=== PATIENT | female | born 1975 | race Caucasian/White ===

== ENCOUNTER 2017-07-07 23:30 | Emergency (ER) | payer MEDICAID ==
[~2017-07-07] VITALS: Ht 165.1 cm; Wt 80.6 kg
[~2017-07-07 23:30] MED LIST: ALBU8.5H3 INH; AMLO-26 PO; HYDR-906 PO; IBUP-1542 PO; LOPE2CAP PO; NAPR-688 PO; ONDA4TAB8 PO; RANI150T9 PO
[2017-07-07 23:32] VITALS: Ht 165.1 cm; Wt 80.6 kg
[2017-07-08] MEDS ORDERED: SOD CHLORIDE 0.9% 1,000 ML IV STA (01:00)
[2017-07-08] MEDS ORDERED: PANTOPRAZOLE 40 MG INJ IV ONE (01:00)
[2017-07-08] MEDS ORDERED: KETOROLAC 15 MG INJ IV STA (01:00)
[2017-07-08] MEDS ORDERED: ONDANSETRON INJ 8 MG in DEXTROSE 5% 50 ML IV STA (01:00)
--- NOTE | 2017-07-08 01:00 | ERD ---
ER Documentation Chief Complaint Chief Complaint right sided abd pain x1 day HPI 41-year-old female presents to emergency department with right upper ABD pain x 3 day hx of RUQ pain in the past, pt reports that the pain is radiating to back. n/v, headache, denies fever chills, same sx last year, possible cholecystis ROS All systems reviewed and are negative except as per history of present illness. Medications Home Meds Active Scripts Ibuprofen* (Motrin*) 400 Mg Tab, 400 MG PO Q6, #30 TAB Prov:VITA,DAVID 07/08/17 Omeprazole* (Omeprazole*) 40 Mg Capsule.dr, 40 MG PO DAILY, #10 CAP Prov:VITA,DAVID 07/08/17 Ranitidine Hcl* (Zantac*) 150 Mg Tablet, 150 MG PO BID Y for EPIGASTRIC PAIN, # 30 TAB Prov:VITA,DAVID 07/08/17 Hydrocodone/Acetaminophen ([place] 5-325 Tablet) 1 Each Tablet, 1 TAB PO Q6H Y for PAIN, #7 TAB Prov:VITA,DAVID 07/08/17 Ibuprofen* (Motrin*) 600 Mg Tab, 600 MG PO Q6, #30 TAB Prov:PROFLORENCIO ROJAS PA-C 08/29/16 Hydrocodone/Acetaminophen ([place] 5-325 Tablet) 1 Each Tablet, 1 TAB PO Q6H Y for PAIN, #20 TAB Prov:PROFLORENCIO ROJAS PA-C 08/29/16 Loperamide Hcl* (Imodium*) 2 Mg Capsule, 2 MG PO .AFTER EA LOOSE BM Y for DIARRHEA, #10 TAB Prov:FLORENCIO GOFF PA-C 08/29/16 Ondansetron Hcl* (Zofran*) 4 Mg Tablet, 4 MG PO Q6H for NAUSEA AND/OR VOMITING, #30 TAB Prov:FLORENCIO GOFF PA-C 08/29/16 Ranitidine Hcl* (Zantac*) 150 Mg Tablet, 150 MG PO BID Y for EPIGASTRIC PAIN, # 30 TAB Prov:NISREEN JACKSON DO 07/09/16 Naproxen* (Naproxen*) 500 Mg Tablet, 500 MG PO BID Y for PAIN, #20 TAB Prov:NISREEN JACKSON DO 07/09/16 Reported Medications Albuterol Sulfate* (Proair HFA*) 8.5 Gm Hfa.aer.ad, 2 PUFF INH Q4H Y for WHEEZING AND SOB, INHALER 11/21/15 Amlodipine-Benazepril (Amlodipine-Benazepril) 5-10 Mg Tablet, 1 CAP PO DAILY 11/21/15 Allergies Allergies: Coded Allergies: No Known Allergy (Unverified , 08/28/16) PMhx/Soc History of Surgery: Yes (BTL) Anesthesia Reaction: No Hx Neurological Disorder: No Hx Respiratory Disorders: Yes (Asthma) Hx Cardiac Disorders: Yes (HTN) Hx Psychiatric Problems: No Hx Miscellaneous Medical Probl: No Hx Alcohol Use: No Hx Substance Use: No Hx Tobacco Use: No Smoking Status: Never smoker Physical Exam Vitals Vital Signs Date Time Temp Pulse Resp B/P Pulse Ox O2 Delivery O2 Flow Rate FiO2 07/07/17 23:32 97.8 64 20 155/72 100 Vitals stable, triage notes reviewed Physical Exam Const: Obese, 41-year-old male patient, well-hydrated in no acute distress, obvious discomfort Head: Eyes: ENT: Normal External Ears, Nose and Mouth. Membranes moist Neck: Resp: Clear to auscultation bilaterally as wheezes or rhonchi Cardio: Regular rate and rhythm, no murmurs Abd: Obese, right upper quadrant tenderness, positive Troy sign my no CVA tenderness Skin: Back: No midline or flank tenderness Ext: Neur: Awake and alert Psych: Normal Mood and Affect Result Diagram: 07/08/175 07/08/17 0125 Results 24 hrs Laboratory Tests Test 07/08/17 01:25 White Blood Count 9.710^3/ul Red Blood Count 4.5410^6/ul Hemoglobin 13.2g/dl Hematocrit 39.9% Mean Corpuscular Volume 87.9fl Mean Corpuscular Hemoglobin 29.1pg Mean Corpuscular Hemoglobin Concent 33.1g/dl Red Cell Distribution Width 12.7% Platelet Count 12435^3/UL Mean Platelet Volume 9.9fl Neutrophils % 61.7% Lymphocytes % 22.8% Monocytes % 6.0% Eosinophils % 8.8% Basophils % 0.5% Nucleated Red Blood Cells % 0.0/100WBC Neutrophils # 6.010^3/ul Lymphocytes # 2.210^3/ul Monocytes # 0.610^3/ul Eosinophils # 0.910^3/ul Basophils # 0.110^3/ul Nucleated Red Blood Cells # 0.010^3/ul Urine Color ROXIE Urine Clarity CLEAR Urine pH 5.0 Urine Specific [place] 1.024 Urine Ketones NEGATIVEmg/dL Urine Nitrite NEGATIVEmg/dL Urine Bilirubin NEGATIVEmg/dL Urine Urobilinogen 1+mg/dL Urine Leukocyte Esterase NEGATIVELeu/ul Urine Microscopic RBC 7/HPF Urine Microscopic WBC 3/HPF Urine Squamous Epithelial Cells FEW/HPF Urine Mucus FEW/HPF Urine Hemoglobin 1+mg/dL Urine Glucose NEGATIVEmg/dL Urine Total Protein NEGATIVEmg/dl Sodium Level 145mmol/L Potassium Level 3.6mmol/L Chloride Level 105mmol/L Carbon Dioxide Level 30mmol/L Anion Gap 14 Blood Urea Nitrogen 15mg/dl Creatinine 0.73mg/dl Glucose Level 96mg/dl Calcium Level 9.8mg/dl Total Bilirubin 0.7mg/dl Direct Bilirubin 0.00mg/dl Indirect Bilirubin 0.7mg/dl Aspartate Amino Transf (AST/SGOT) 195IU/L Alanine Aminotransferase (ALT/SGPT) 110IU/L Alkaline Phosphatase 132IU/L Total Protein 8.7g/dl Albumin 4.3g/dl Globulin 4.40g/dl Albumin/Globulin Ratio 0.97 Lipase 100U/L Current Medications Medications (Trade) Dose Ordered Sig/Yessica Route PRN Reason Start Time Stop Time Status Last Admin Dose Admin Sodium Chloride 1,000 ml @ 1,000 mls/hr Q1H STAT IV 07/08/17 01:00 07/08/17 01:59 DC 07/08/17 01:31 Ondansetron HCl/ Dextrose (Zofran Inj/D5W) 54 ml @ 200 mls/hr ONCE STAT IV 07/08/17 01:00 07/08/17 01:55 DC Ketorolac Tromethamine (Toradol) 15 mg ONCE STAT IV 07/08/17 01:00 07/08/17 01:02 DC 07/08/17 01:31 Pantoprazole (Protonix Iv) 40 mg ONCE ONCE IV 07/08/17 01:00 07/08/17 01:02 DC 07/08/17 01:33 Ondansetron HCl (Zofran Inj) 4 mg ONCE STAT IV 07/08/17 01:54 07/08/17 01:55 DC 07/08/17 01:56 Morphine Sulfate (morphine) 4 mg ONCE ONCE IV 07/08/17 03:24 07/08/17 03:33 DC 07/08/17 03:34 Ondansetron HCl (Zofran Inj) 4 mg ONCE STAT IV 07/08/17 03:24 07/08/17 03:33 DC 07/08/17 03:20 Interpretation text CBC shows no evidence of hemorrhage or infection Chemistry shows no evidence of significant electrolyte abnormalities or renal insufficiency Liver function tests shows no evidence of acute biliary or hepatic dysfunction Lipase shows no evidence of acute pancreatitis . Procedures/MDM PROCEDURE: CT Abdomen and pelvis without contrast. CLINICAL INDICATION: Abdominal pain. TECHNIQUE: CT scan of the abdomen and pelvis was performed on a multi- detector high-resolution CT scanner. Contiguous axial images were obtained from the lung bases to the ischial tuberosities without intravenous contrast. Coronal and sagittal reformatted images were also obtained. Images were reviewed on the PACS workstation. One or more of the following dose reduction techniques were used: - Automated exposure control. - Adjustment of the mA and/or kV according to patient size. - Use of iterative reconstruction technique. Exam CTD/vol = 21.45 mGy. Total exam DLP = 1210.64 mGy-cm. COMPARISON: 01/06/2016. FINDINGS: Evaluation of the lung bases demonstrates no pleural or parenchymal disease. Abdomen: The liver is normal in size and diffusely low in attenuation consistent with mild fatty infiltration. There is no focal mass or dilatation of the biliary tree. The gallbladder is distended and contains a gallstone measuring 3.0 x 2.3 cm. The spleen, pancreas and bilateral adrenal glands are within normal limits. Bilateral kidneys are normal in size with no contour deforming mass identified. There is no radiopaque renal or ureteral calculus identified. There is no hydronephrosis or hydroureter. There is no retroperitoneal adenopathy. The abdominal aorta is of normal caliber. There is no abnormal bowel wall thickening or distension. There is no bowel obstruction or free air. A normal appendix is identified. There are scattered colonic diverticuli without evidence of diverticulitis. There is no ascites. Pelvis: The bladder is unremarkable. The uterus and adnexa are within normal limits. There is no significant pelvic adenopathy or free fluid. Evaluation of the osseous structures demonstrates no suspicious lytic or blastic lesion. IMPRESSION: Fatty infiltration of the liver. Cholelithiasis. Scattered colonic diverticuli without evidence of diverticulitis. Otherwise no acute abnormality identified within the abdomen and pelvis. .Neri Guzman MD, MD Date Time Electronically viewed and signed by .Neri Guzman MD, MD on 07/08/2017 02:29 This 41-year-old female presents to emergency department for right upper abdominal pain radiating to the right back, patient reports possible history of cholelithiasis. Symptoms started 3 days ago. Patient reports nausea, vomiting , abdominal pain denies dysuria, chest pain, shortness of breath or palpitations. Emergency room course includes history and physical exam positive Troy sign suggestive of cholelithiasis, patient will receive a full workup with diagnostic labs, IV fluid, pain control, Protonix, Zofran, and a CAT scan of the abdomen and pelvis without contrast. Laboratory findings negative for hemorrhage, infection, electrolyte imbalance, hepatitis, pancreatitis, or urinary tract infection, ultrasound positive for nonobstructive cholelithiasis, fatty infiltration of the liver, scattered diverticuli without diverticulitis, see above for full radiology CAT scan reviewed. Patient reassessed interventions completed, patient continues to report pain and nausea, 4 mg of morphine, 4 additional milligrams of Zofran provided plan to discharge patient home with [place] 5/325 count of 7, ibuprofen, Prilosec, patient instructed to hear to a clear liquid diet advanced as tolerated, follow- up with primary physician for treatment options and plan of care for cholelithiasis and fatty liver. Return to emergency department for worsening of current symptoms, pain unresolved with treatment. Patient is stable with no new complaints during ER course, clinically there is no current evidence to suggest meningitis, sepsis, acute abdomen, acute coronary syndromes, pulmonary embolism or any other emergent condition appearing to require further evaluation or hospitalization. I feel the patient is stable for discharge at this time. I have discussed results, examination findings, the treatment plan with the patient and family present prior to discharge. Indications for emergent reevaluation, side effects of medication were also discussed. All questions were answered. Patient verbalizes understanding and agrees with plan of care. Departure Diagnosis: Primary Impression: Cholecystitis Additional Impression: Fatty liver Condition: Good Patient Instructions: Cholecystitis, Confirmed, Non-Alcoholic Fatty Liver Disease (NAFLD) Additional Instructions: Thank you for for coming to [facility] or your care today. Please ask your nurse or provider if you have questions about your care today and do not leave until all your questions have been answered. Please use any medications given as directed and follow-up with your doctor (or the doctor you were referred to) in the next 2-3 days. If you do not have a primary care doctor you may follow up at the [facility] (listed below). You may also use motrin and tylenol as needed for fever and/or pain unless instructed otherwise by your provider or nurse. Indications for more urgent follow-up have been discussed, but you may return to the Emergency Department at ANY time for any worrisome or worsening symptoms. If you have abdominal pain, please know that no test or exam you received is perfect and you should follow up within 8 hours for continued pain. If you had any imaging studies today, such as an X-Ray or CT Scan, these studies will be reviewed later by a radiologist. You will be called if there are important findings that were not identified today, so make sure the contact information you provided at registration is correct. If you received any narcotic pain control medicine today, such as Vicodin, Morphine or Dilaudid, your coordination and judgment may be affected for a number of hours. Please do not drive or operate heavy machinery, and you may want someone to assist you at home. If you were given a prescription for narcotic medication, be aware that it is very addictive- use sparingly and only if necessary. DAVID GORMAN Jul 08, 2017 01:00
[2017-07-08] MEDS ORDERED: ONDANSETRON 4 MG INJ IV STA ×2 (01:54→03:24)
--- NOTE | 2017-07-08 02:29 | RADRPT ---
PROCEDURE: CT Abdomen and pelvis without contrast. CLINICAL INDICATION: Abdominal pain. TECHNIQUE: CT scan of the abdomen and pelvis was performed on a multi-detector high-resolution CT scanner. Contiguous axial images were obtained from the lung bases to the ischial tuberosities wit hout intravenous contrast. Coronal and sagittal reformatted images were also obtained. Images were reviewed on the PACS workstation. One or more of the following dose reduction techniques were used: - Automated exposure control. - Adjustment of the mA and/or kV according to patient size. - Use of iterative reconstruction technique. Exam CTD/vol = 21.45 mGy. Total exam DLP = 1210.64 mGy-cm. COMPARISON: 01/06/2016. FINDINGS: Evaluation of the lung bases demonstrates no pleural or parenchymal disease. Abdomen: The liver is normal in size and diffusely low in attenuation consistent with mild fatty in filtration. There is no focal mass or dilatation of the biliary tree. The gallbladder is distended and contains a gallstone measuring 3.0 x 2.3 cm. The spleen, pancreas and bilateral adrenal glands are within normal limits. Bilateral kidneys are normal in size with no contour deforming mass iden tified. There is no radiopaque renal or ureteral calculus identified. There is no hydronephrosis o r hydroureter. There is no retroperitoneal adenopathy. The abdominal aorta is of normal caliber. There is no abnormal bowel wall thickening or distension. There is no bowel obstruction or free air . A normal appendix is identified. There are scattered colonic diverticuli without evidence of div erticulitis. There is no ascites. Pelvis: The bladder is unremarkable. The uterus and adnexa are within normal limits. There is no significant pelvic adenopathy or free fluid. Evaluation of the osseous structures demonstrates no suspicious lytic or blastic lesion. IMPRESSION: Fatty infiltration of the liver. Cholelithiasis. Scattered colonic diverticuli without evidence of diverticulitis. Otherwise no acute abnormality identified within the abdomen and pelvis. .Neri Guzman MD, MD Date Time Electronically viewed and signed by .Neri Guzman MD, MD on 07/08/2017 02:29 .T/
[2017-07-08] MEDS ORDERED: morphine 4 MG/ML VIAL IV ONE (03:24)
[2017-07-08] MEDS ORDERED: RANI150T9 PO (03:26)
[2017-07-08] MEDS ORDERED: HYDR-906 PO (03:26)
[2017-07-08] MEDS ORDERED: IBUP400T22 PO (03:27)
[2017-07-08] MEDS ORDERED: OMEP40CA6 PO (03:27)
== END 2017-07-08 04:37 | disposition home or self-care (01) ==
LOC: FTE 23:30
DX: K81.9 Cholecystitis, unspecified (principal); K57.30 Diverticulosis of large intestine without perforation or abscess without bleeding; K76.0 Fatty (change of) liver, not elsewhere classified; I10 Essential (primary) hypertension; J45.909 Unspecified asthma, uncomplicated
CPT/HCPCS: 36415; 74176; 80053; 81001; 83690; 85025; 96374; 96375; 96376; C9113; J1885; J2270; J2405; J7030; Z7502

== ENCOUNTER 2017-07-16 16:22 | Emergency (ER) | payer MEDICAID ==
[~2017-07-16] VITALS: Wt 79.1 kg
[~2017-07-16 16:22] MED LIST changes: +IBUP400T22 PO; +OMEP40CA6 PO
[2017-07-16] MEDS ORDERED: morphine 4 MG/ML VIAL IV STA (17:35)
[2017-07-16] MEDS ORDERED: ONDANSETRON 4 MG INJ IV STA (17:35)
--- NOTE | 2017-07-16 17:54 | RADRPT ---
PROCEDURE: US Abdomen (right upper quadrant). CLINICAL INDICATION: Right upper quadrant abdomen pain. TECHNIQUE: Multiple real-time longitudinal and transverse images of the right upper quadrant of th e abdomen were acquired utilizing a curved array transducer. Images were reviewed on a high-resoluti on PACS workstation. COMPARISON: None FINDINGS: The liver is normal in size and diffusely increased in echogenicity. There is no focal hepatic lesion. Color Doppler and pulsed Doppler sonography demonstrate normal a ntegrade flow in the portal vein. The gallbladder is full of multiple gallstones. There is no gallbladder wall thickening. There is n o pericholecystic fluid collection. The bile ducts are normal with the common bile duct measuring 3.1 mm in diameter. The visualized portions of the pancreas are unremarkable with obscuration of the tail of the pancrea s. No free fluid is present. The right kidney measures 10.3 x 4.2 x 4.1 cm. There is normal echogenicity of the right kidney. There is no perinephric fluid collection. No hydronephrosis, mass, or calculus is seen. IMPRESSION: 1. Fatty metamorphosis of the liver. 2. Multiple gallstones filling the gallbladder. No evidence of cholecystitis. 3. Otherwise unremarkable right upper quadrant abdomen ultrasound. RPTAT: QQ .Mahendra Ascencio MD, MD Date Time Electronically viewed and signed by .Mahendra Ascencio MD, on 07/16/2017 17:54 .R/
[2017-07-16 18:58] LABS: BASOPHIL # 0.1 10^3/ul (0.0-0.1); BASOPHILS % 0.6 % (0.0-2.0); EOSINOPHILS # 0.8 10^3/ul (0.0-0.5); EOSINOPHILS % 8.8 % (0.0-7.0); HEMATOCRIT 40.5 % (37.0-47.0); HEMOGLOBIN 13.4 g/dl (12.0-16.0); LYMPHOCYTES % 33.6 % (15.0-51.0); MEAN CORPUSCULAR HEMOGLOBIN 29.5 pg (29.0-33.0); MEAN CORPUSCULAR HGB CONC 33.1 g/dl (32.0-37.0); MEAN PLATELET VOLUME 10.2 fl (7.4-10.4); MONOCYTE # 0.6 10^3/ul (0.3-0.9); NEUTROPHIL # 4.5 10^3/ul (1.6-7.5); NEUTROPHILS % 49.8 % (39.0-77.0); PLATELET COUNT 337 10^3/UL (140-415); RED BLOOD COUNT 4.55 10^6/ul (4.20-5.40); RED CELL DISTRIBUTION WIDTH 12.7 % (11.5-14.5); WHITE BLOOD COUNT 9.1 10^3/ul (4.8-10.8)
[2017-07-16 19:12] LABS: ALBUMIN 4.6 g/dl (3.3-4.9); ALBUMIN/GLOBULIN RATIO 1.31; BILIRUBIN,INDIRECT 0.3 mg/dl (0-1.1); BILIRUBIN,TOTAL 0.3 mg/dl (0.2-1.3); CALCIUM 9.4 mg/dl (8.4-10.2); CREATININE 0.77 mg/dl (0.44-1.00); POTASSIUM 4.1 mmol/L (3.5-5.1); TOTAL PROTEIN 8.1 g/dl (6.1-8.1)
[2017-07-16 19:45] LABS: URINE BLOOD (Dip) POC 1+ (NEGATIVE)
[2017-07-16 20:01] LABS: ADD UMIC YES; UR ASCORBIC ACID NEGATIVE (NEGATIVE); UR BACTERIA FEW /HPF (NONE SEEN); UR BILIRUBIN (Dip) NEGATIVE (NEGATIVE); UR BLOOD (Dip) 1+ mg/dL (NEGATIVE); UR CLARITY SLIGHTLY CLOUDY (CLEAR); UR COLOR YELLOW (YELLOW); UR GLUCOSE (Dip) NEGATIVE (NEGATIVE); UR KETONES (Dip) NEGATIVE (NEGATIVE); UR LEUKOCYTE ESTERASE (Dip) NEGATIVE Leu/ul (NEGATIVE); UR NITRITE (Dip) NEGATIVE (NEGATIVE); UR RBC 9 /HPF (0-5); UR SPECIFIC GRAVITY (Dip) 1.016 (1.003-1.030); UR SQUAMOUS EPITHELIAL CELL MANY /HPF (FEW); UR TOTAL PROTEIN (Dip) NEGATIVE (NEGATIVE); UR UROBILINOGEN (Dip) 1+ mg/dL (NEGATIVE)
[2017-07-16] MEDS ORDERED: KETOROLAC 30 MG INJ IV STA (20:06)
[2017-07-16] MEDS ORDERED: IBUP-1542 PO (20:07)
[2017-07-16] MEDS ORDERED: TRAM50TA2 PO (20:08)
[2017-07-16] MEDS ORDERED: ONDA4TAB14 PO (20:08)
[2017-07-16 20:12] VITALS: RESP 17
[2017-07-16 20:24] VITALS: BP 138/75; PULSE 58
--- NOTE | 2017-07-16 20:33 | ERD ---
ER Documentation Chief Complaint Chief Complaint ruq rad into back, n/v HPI Patient is [id number] female with a past medical history of cholelithiasis who presents emergency department for concerns of right upper quadrant pain, nausea and vomiting which started last night. Patient describes the pain to be constant. Patient describes the pain to be originating in her right upper quadrant and radiating throughout her abdomen into her back. Patient denies any fevers or chills. Patient reports 8-10 episodes of nonbloody, nonbilious vomiting. She describes the vomiting to be clear fluid like. Patient also reports a decreased appetite. Patient states she also had 4 episodes of watery brown diarrhea this morning. Patient denies any chest pain, shortness of breath or LOC. Patient denies any dysuria, frequency or hematuria. Patient has not seen general surgeon yet. ROS All systems reviewed and are negative except as per history of present illness. Medications Home Meds Active Scripts Tramadol HCl (Tramadol HCl) 50 Mg Tablet, 50 MG PO Q4 Y for PAIN, #10 TAB Prov:TOMMIE BAGLEY PA-C 07/16/17 Ondansetron (Ondansetron Odt) 4 Mg Tab.rapdis, 4 MG PO Q6H Y for NAUSEA AND/OR VOMITING, #10 TAB Prov:TOMMIE BAGLEY PA-C 07/16/17 Ibuprofen* (Motrin*) 600 Mg Tab, 600 MG PO Q6, #30 TAB Prov:TOMMIE BAGLEY PA-C 07/16/17 Ibuprofen* (Motrin*) 400 Mg Tab, 400 MG PO Q6, #30 TAB Prov:VITA,DAVID 07/08/17 Omeprazole* (Omeprazole*) 40 Mg Capsule.dr, 40 MG PO DAILY, #10 CAP Prov:VITA,DAVID 07/08/17 Ranitidine Hcl* (Zantac*) 150 Mg Tablet, 150 MG PO BID Y for EPIGASTRIC PAIN, # 30 TAB Prov:VITA,DAVID 07/08/17 Hydrocodone/Acetaminophen ([place] 5-325 Tablet) 1 Each Tablet, 1 TAB PO Q6H Y for PAIN, #7 TAB Prov:VITA,DAVID 07/08/17 Ibuprofen* (Motrin*) 600 Mg Tab, 600 MG PO Q6, #30 TAB Prov:FLORENCIO GOFF PA-C 08/29/16 Hydrocodone/Acetaminophen ([place] 5-325 Tablet) 1 Each Tablet, 1 TAB PO Q6H Y for PAIN, #20 TAB Prov:FLORENCIO GOFF PA-C 08/29/16 Loperamide Hcl* (Imodium*) 2 Mg Capsule, 2 MG PO .AFTER EA LOOSE BM Y for DIARRHEA, #10 TAB Prov:FLORENCIO GOFF PA-C 08/29/16 Ondansetron Hcl* (Zofran*) 4 Mg Tablet, 4 MG PO Q6H for NAUSEA AND/OR VOMITING, #30 TAB Prov:FLORENCIO GOFF PA-C 08/29/16 Ranitidine Hcl* (Zantac*) 150 Mg Tablet, 150 MG PO BID Y for EPIGASTRIC PAIN, # 30 TAB Prov:NISREEN JACKSON 07/09/16 Naproxen* (Naproxen*) 500 Mg Tablet, 500 MG PO BID Y for PAIN, #20 TAB Prov:RENETTANISREEN 07/09/16 Reported Medications Albuterol Sulfate* (Proair HFA*) 8.5 Gm Hfa.aer.ad, 2 PUFF INH Q4H Y for WHEEZING AND SOB, INHALER 11/21/15 Amlodipine-Benazepril (Amlodipine-Benazepril) 5-10 Mg Tablet, 1 CAP PO DAILY 11/21/15 Allergies Allergies: Coded Allergies: No Known Allergy (Unverified , 08/28/16) PMhx/Soc History of Surgery: Yes (BTL) Anesthesia Reaction: No Hx Neurological Disorder: No Hx Respiratory Disorders: Yes (Asthma) Hx Cardiac Disorders: Yes (HTN) Hx Psychiatric Problems: No Hx Miscellaneous Medical Probl: No Hx Alcohol Use: No Hx Substance Use: No Hx Tobacco Use: No Smoking Status: Never smoker Physical Exam Vitals Vital Signs Date Time Temp Pulse Resp B/P Pulse Ox O2 Delivery O2 Flow Rate FiO2 07/16/17 20:12 70 17 150/83 96 Room Air 07/16/17 16:24 98.9 89 20 177/112 99 Physical Exam GENERAL: Well-developed, well-nourished female. Moderate distress secondary to pain. HEAD: Normocephalic, atraumatic. EYES: Pupils are equally reactive bilaterally. EOMs grossly intact. No conjunctival erythema. ENT: Moist mucous membranes. No uvula deviation. No kissing tonsils. NECK: Supple. No meningismus. Normal range of motion of the neck. LUNG: Clear to auscultation bilaterally. No rhonchi, wheezing, rales or coarse breath sounds. HEART: Regular rate and rhythm. No murmurs, rubs or gallops. ABDOMEN:. Soft and nondistended. Diffuse tenderness to palpation in all 4 quadrants. Right upper quadrant is significantly more tender. Positive Troy sign. Positive bowel sounds in all four quadrants. No guarding. (-) McBurney' s point tenderness. No CVA tenderness. EXTREMITIES: Equal pulses bilaterally. No peripheral clubbing, cyanosis or edema. No unilateral leg swelling. NEUROLOGIC: Alert and oriented. Moving all four extremities without any difficulty. Normal speech. Steady gait. SKIN: Normal color. Warm and dry. No rashes or lesions. Result Diagram: 07/16/17180107/16/171801 Results 24 hrs Laboratory Tests Test 07/16/17 18:02 07/16/17 19:39 07/16/17 19:42 White Blood Count 9.110^3/ul Red Blood Count 4.5510^6/ul Hemoglobin 13.4g/dl Hematocrit 40.5% Mean Corpuscular Volume 89.0fl Mean Corpuscular Hemoglobin 29.5pg Mean Corpuscular Hemoglobin Concent 33.1g/dl Red Cell Distribution Width 12.7% Platelet Count 74564^3/UL Mean Platelet Volume 10.2fl Neutrophils % 49.8% Lymphocytes % 33.6% Monocytes % 7.0% Eosinophils % 8.8% Basophils % 0.6% Nucleated Red Blood Cells % 0.0/100WBC Neutrophils # 4.510^3/ul Lymphocytes # 3.010^3/ul Monocytes # 0.610^3/ul Eosinophils # 0.810^3/ul Basophils # 0.110^3/ul Nucleated Red Blood Cells # 0.010^3/ul Sodium Level 144mmol/L Potassium Level 4.1mmol/L Chloride Level 105mmol/L Carbon Dioxide Level 26mmol/L Anion Gap 17 Blood Urea Nitrogen 14mg/dl Creatinine 0.77mg/dl Glucose Level 91mg/dl Calcium Level 9.4mg/dl Total Bilirubin 0.3mg/dl Direct Bilirubin 0.00mg/dl Indirect Bilirubin 0.3mg/dl Aspartate Amino Transf (AST/SGOT) 26IU/L Alanine Aminotransferase (ALT/SGPT) 29IU/L Alkaline Phosphatase 108IU/L Total Protein 8.1g/dl Albumin 4.6g/dl Globulin 3.50g/dl Albumin/Globulin Ratio 1.31 Lipase 84U/L Urine Color YELLOW Urine Clarity SLIGHTLY CLOUDY Urine pH 6.0 Urine Specific [place] 1.016 Urine Ketones NEGATIVEmg/dL Urine Nitrite NEGATIVEmg/dL Urine Bilirubin NEGATIVEmg/dL Urine Urobilinogen 1+mg/dL Urine Leukocyte Esterase NEGATIVELeu/ul Urine Microscopic RBC 9/HPF Urine Microscopic WBC 2/HPF Urine Squamous Epithelial Cells MANY/HPF Urine Bacteria FEW/HPF Urine Hemoglobin 1+mg/dL Urine Glucose NEGATIVEmg/dL Urine Total Protein NEGATIVEmg/dl Bedside Urine pH (LAB) 6.0 Bedside Urine Protein (LAB) Trace Bedside Urine Glucose (UA) Negative Bedside Urine Ketones (LAB) Negative Bedside Urine Blood 1+ Bedside Urine Nitrite (LAB) Negative Bedside Urine Leukocyte Esterase (L Negative Current Medications Medications (Trade) Dose Ordered Sig/Yessica Route PRN Reason Start Time Stop Time Status Last Admin Dose Admin Morphine Sulfate (morphine) 4 mg ONCE STAT IV 07/16/17 17:35 07/16/17 17:36 DC 07/16/17 18:03 Ondansetron HCl (Zofran Inj) 4 mg ONCE STAT IV 07/16/17 17:35 07/16/17 17:36 DC 07/16/17 18:03 Ketorolac Tromethamine (Toradol) 30 mg ONCE STAT IV 07/16/17 20:06 07/16/17 20:07 DC 07/16/17 20:13 Procedures/MDM ED COURSE: The patient was stable throughout ED course. I kept the patient and/or family informed of laboratory and diagnostic imaging results throughout the ED course. DIAGNOSTIC IMAGING: Read by radiologist. Patient: JOHN RABAGO : 1975 Age: 41 Sex: F MR #: [id number] DOS: 07/16/17 0000 Ordering MD: TOMMIE BAGLEY PA-C Location: [facility] Room/Bed: PROCEDURE: US Abdomen (right upper quadrant). CLINICAL INDICATION: Right upper quadrant abdomen pain. TECHNIQUE: Multiple real-time longitudinal and transverse images of the right upper quadrant of the abdomen were acquired utilizing a curved array transducer. Images were reviewed on a high-resolution PACS workstation. COMPARISON: None FINDINGS: The liver is normal in size and diffusely increased in echogenicity. There is no focal hepatic lesion. Color Doppler and pulsed Doppler sonography demonstrate normal antegrade flow in the portal vein. The gallbladder is full of multiple gallstones. There is no gallbladder wall thickening. There is no pericholecystic fluid collection. The bile ducts are normal with the common bile duct measuring 3.1 mm in diameter. The visualized portions of the pancreas are unremarkable with obscuration of the tail of the pancreas. No free fluid is present. The right kidney measures 10.3 x 4.2 x 4.1 cm. There is normal echogenicity of the right kidney. There is no perinephric fluid collection. No hydronephrosis, mass, or calculus is seen. IMPRESSION: 1. Fatty metamorphosis of the liver. 2. Multiple gallstones filling the gallbladder. No evidence of cholecystitis. 3. Otherwise unremarkable right upper quadrant abdomen ultrasound. RPTAT: QQ .Mahendra Ascencio MD, MD Date Time Electronically viewed and signed by .Mahendra Ascencio MD, MD on 07/16/2017 17:54 .R/ CC: TOMMIE BAGLEY PA-C PROCEDURES: None. MEDICATIONS GIVEN: Toradol, Zofran, morphine Patient tolerated medication well with no adverse reactions. Patient reported improvement in pain. MEDICAL DECISION MAKING: Patient is a 41-year-old female who presents with right upper quadrant pain, nausea and vomiting 1 day. Patient has a history of cholelithiasis. Patient has not been seen by general surgeon yet. Vital signs were reviewed. Patient is afebrile. CBC showed no evidence of systemic infection or severe anemia. CMP showed no evidence of electrolyte abnormalities, severe acidosis, alkalosis , renal failure, or liver disease. Lipase showed no evidence of acute pancreatitis. Urine test was negative. Urine dip showed hemoglobin however low suspicion for nephrolithiasis at this time. I reviewed the patient' s previous abdomen and pelvis CT scan obtained on 07-07-17. CT scan on 07-07-17 showed Fatty infiltration of the liver. Cholelithiasis. Scattered colonic diverticuli without evidence of diverticulitis. Otherwise no acute abnormality identified within the abdomen and pelvis. At this time, patient's presentation is most consistent with cholelithiasis. There is no indication for emergent cholecystectomy. Patient will need to follow-up with a general surgeon on an outpatient basis for elective cholecystectomy. I have a much lower clinical concern for acute coronary syndrome, AAA, mesenteric ischemia, lower lobe pneumonia, DKA, bowel perforation , bowel obstruction, choledocholithiasis, ascending cholangitis, acute cholecystitis, hepatic abscess, pancreatitis, diverticulitis, UTI, pyelonephritis, nephrolithiasis, appendicitis, , ectopic , ovarian torsion. Discussed case with supervising physician Dr. Ashraf, who agrees with above dispo and plan. PRESCRIPTIONS: Tramadol, Zofran, ibuprofen DISCHARGE: At this time, patient is stable for discharge and outpatient management. Patient was given a copy of all imaging studies obtained today as well as blood work. Patient was given referral information for general surgeon. I have instructed the patient to follow-up with his/her primary care physician in 1-2 days. I have instructed the patient to promptly return to the ER at any time for any new or worsening symptoms including increased pain, nausea, vomiting, diarrhea, fever, weakness or LOC. The patient and/or family expressed understanding of and agreement with this plan. All questions were answered. Home care instructions were provided. Patients blood pressure was elevated (>120/80) but appears stable without evidence of hypertensive emergency, hypertensive urgency or end-organ failure. I had discussion with the patient about the risks of hypertension. I have advised the patient to follow up with his/her primary care physician for outpatient monitoring and treatment for hypertension in 2-3 days. I have instructed the patient to return to the ER for any new or worsening symptoms including chest pain, shortness of breath, headache, blurred vision, confusion, nausea, vomiting or LOC. Disclaimer: Inadvertent spelling and grammatical errors are likely due to EHR/ dictation software use and do not reflect on the overall quality of patient care. Also, please note that the electronic time recorded on this note does not necessarily reflect the actual time of the patient encounter. Departure Diagnosis: Primary Impression: Cholelithiasis Cholelithiasis location: gallbladder Cholecystitis presence: without cholecystitis Biliary obstruction: without biliary obstruction Qualified Code : K80.20 - Calculus of gallbladder without cholecystitis without obstruction Condition: Stable Patient Instructions: Gallstones Referrals: [facility] (PCP) SARAY LAINEZ MD,FLIP RED MD, MD, KAMBIZ M.D. LOMIS, THOMAS MD Additional Instructions: Call your primary care doctor TOMORROW for an appointment during the next 1-2 days.See the doctor sooner or return here if your condition worsens before your appointment time. Follow up with your primary care physician for referral to general surgeon for your gallstones. He will need to have her gallbladder removed on an outpatient basis. TOMMIE BAGLEY PA-C Jul 16, 2017 20:31
== END 2017-07-16 20:24 | disposition home or self-care (01) ==
LOC: FTE 16:22
DX: K80.20 Calculus of gallbladder without cholecystitis without obstruction (principal); J45.909 Unspecified asthma, uncomplicated; I10 Essential (primary) hypertension
CPT/HCPCS: 36415; 76705; 80053; 81001; 83690; 85025; 96374; 96375; J1885; J2270; J2405; Z7502; 81003

== ENCOUNTER 2017-09-02 07:03 | Emergency (ER) | END 2017-09-02 11:06 | disposition home or self-care (01) ==

== ENCOUNTER 2018-06-18 00:53 | Emergency (ER) | END 2018-06-18 03:42 | disposition home or self-care (01) ==